=== PATIENT | female | born 1960 | race Caucasian/White ===

== ENCOUNTER → 2018-06-17 | Outpatient (CLI) | payer OTHER ==
[~2018-06-17] MED LIST: BUPR150T73 PO; LEVO100T5 PO; TIZA2TAB PO
== END | disposition home or self-care (01) ==
LOC: CFH 10:45
PROVIDERS: ATTEND Internal Medicine
DX: Z12.31 Encounter for screening mammogram for malignant neoplasm of breast (principal)
CPT/HCPCS: 77067